=== PATIENT | male | born 1985 ===

== ENCOUNTER 2018-10-01 01:54 | Emergency (ER) | payer SELFPAY ==
--- NOTE | 2018-10-01 02:41 | ED PDOC ---
HPI: Psych/Substance Abuse Time Seen by Provider: 10/01/18 02:06 Chief Complaint (Nursing): Alcohol Ingestion Chief Complaint (Provider): Alcohol Ingestion ED Caveat: Intoxicated History Per: EMS History/Exam Limitations: intoxication Additional Complaint(s): 33 years old male brought in by EMS for an evaluation of alcohol intoxication. Patient denies any medical complaints. Full HPI and ROS are limited due to patient's intoxicated state. PMD: None provided Past Medical History Reviewed: Historical Data, Nursing Documentation, Vital Signs - Medical History Other PMH: Unknown - Surgical History Other surgeries: Unknown - Family History Family History: States: Unknown Family Hx - Social History Alcohol: Social - Allergies Allergies/Adverse Reactions: Allergies Allergy/AdvReac Type Severity Reaction Status Date / Time Unobtainable Allergy Verified 10/01/18 02:46 Review of Systems Review Of Systems: ROS cannot be obtained secondary to pt's inabilty to answer questions. Physical Exam - Reviewed Nursing Documentation Reviewed: Yes Vital Signs Reviewed: Yes - Physical Exam Appears: Positive for: No Acute Distress Head Exam: Positive for: ATRAUMATIC, NORMOCEPHALIC Skin: Positive for: Normal Color, Warm, Dry Eye Exam: Positive for: Normal appearance, EOMI, PERRL Neck: Positive for: Normal, Painless ROM, Supple Cardiovascular/Chest: Positive for: Regular Rate, Rhythm. Negative for: Murmur Respiratory: Positive for: Normal Breath Sounds. Negative for: Wheezing Gastrointestinal/Abdominal: Positive for: Normal Exam, Soft. Negative for: Tenderness Back: Positive for: Normal Inspection. Negative for: L CVA Tenderness, R CVA Tenderness Extremity: Positive for: Normal ROM. Negative for: Pedal Edema, Swelling Neurologic/Psych: Positive for: Gait (Steady), Other (Speech slurred) Medical Decision Making Medical Decision Makin Initial impression: 33 y/o male brought in by EMS for psychiatric evaluation Initial plan: --Urine drug screen --Alcohol serum --Glucose 0559 Upon reevaluation, patient is sober and stable for discharge. Clinical impression: Alcohol use Scribe Attestation: Documented by Dede Clay, acting as a scribe Matt Ruggiero MD. Provider Scribe Attestation: All medical record entries made by the Scribe were at my direction and personally dictated by me. I have reviewed the chart and agree that the record accurately reflects my personal performance of the history, physical exam, medical decision making, and the department course for this patient. I have also personally directed, reviewed, and agree with the discharge instructions and disposition. Disposition - Clinical Impression Clinical Impression: Alcohol use - Patient ED Disposition Is Patient to be Admitted: No - Disposition Disposition: Routine/Home Disposition Time: 05:59 Condition: STABLE Instructions: Alcohol Use - When Is Drinking a Problem? Print Language: FRISIAN
[2018-10-01 02:46] VITALS: BMI 29.5
[2018-10-01 02:57] VITALS: RESP 18
[2018-10-01 06:39] VITALS: BP 134/82; PULSE 82; TEMP 98.2; O2SAT 100
== END 2018-10-01 06:30 | disposition home or self-care (01) ==
LOC: H.ER 01:54
DX: F10.129 Alcohol abuse with intoxication, unspecified (principal)
CPT/HCPCS: 82948; 99283; G0480